=== PATIENT | female | born 2005 | race Two or more races ===

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

== ENCOUNTER 2023-05-31 14:50 | Emergency (ER) | payer OTHER, SELFPAY ==
[2023-05-31 15:12] VITALS: BP 121/80; PULSE 92; RESP 18; TEMP 36.4; O2SAT 100
--- NOTE | 2023-05-31 15:54 | ED.GENADULT ---
HPI - General Adult General Chief complaint: Urogenital-Female <Shannan Shell August, Last Filed: 06/08/23 11:57> Stated complaint: vomiting-UTI, chlamydia <Shannan Shell August, Last Filed: 06/08/23 11:57> Time Seen by Provider: 05/31/23 18:55 <Shannan Shell August, Last Filed: 06/08/23 11:57> History of Present Illness HPI narrative: Focused HPI: [address]54 Ida Buckner is a 17 y/o female who presents today with reports of being diagnosed with a UTI and chlamydia about 5 days ago and was put on Bactrim and Doxycycline and she states that she has felt nauseated since starting the medications and vomited yesterday and hasn't been able to keep them down for the past two days She also states that she has some left flank pain She states that she thinks the medications were giving her rashes to her arms and legs but it went away and is not there at this time. GENERAL: Well-appearing, well-nourished, and in no acute distress. HEAD: Normocephalic, atraumatic. CHEST: Clear to auscultation. ?No respiratory distress. HEART: Regular rate and rhythm.? NEURO: ?Alert and oriented x3. Patient screened in triage and initial orders placed.? ?Additional care and disposition to be based upon?diagnostic testing and treatment. <Shannan Shell August, Last Filed: 06/08/23 11:57> Related Data Home medications: Home Medications Medication Instructions Recorded Confirmed iron,carbonyl 30 mg-vitamin C 10 1 tablet PO DAILY 06/10/22 06/10/22 mg-FOS 25 mg chewable tablet (Chewable Iron) <Shannan Shell August, Last Filed: 06/08/23 11:57> Allergies/adverse reactions: Allergies Allergy/AdvReac Type Severity Reaction Status Date / Time shellfish derived Allergy Unknown unknown Verified 05/31/23 14:51 <Shannan Shell August, Last Filed: 06/08/23 11:57> Review of Systems Review of Systems: All systems reviewed & are unremarkable except as noted in HPI and below <Shannan Shell August, Last Filed: 06/08/23 11:57> PMFSH Past Medical History Medical History: Medical History Chiari I malformation Headache <Shannan Amador APRN - Last Filed: 06/08/23 11:57> Surgical History Surgical History: Surgical History No history of previous surgery <Shannan Amador APRN - Last Filed: 06/08/23 11:57> Family History Family History: Family History Other Family history non-contributory <Shannan Amador [employer] - Last Filed: 06/08/23 11:57> Social History Social History: Social History Social History: never smoker Smoking status: Never smoker Alcohol intake: never Substance use type: marijuana Other substance usage details: THC dab pen <Shannan Amador [employer] - Last Filed: 06/08/23 11:57> Exam Narrative: APPEARANCE: No apparent distress. Head: atraumatic. EYES: EOMI, NOSE: Atraumatic NECK: Trachea midline RESPIRATORY: No increased rate of breathing CARDIOVASCULAR: RRR, ABDOMINAL: Non-distended, soft nontender no suprapubic tenderness no CVA tenderness MUSCULOSKELETAl: No obvious deformities NEURO: Alert. Moving 4/4 extremities SKIN:: Warm, dry. Normal color PSYCHIATRIC: Normal affect <Cosmo Todd MD - Last Filed: 05/31/23 20:29> Course Vital Signs Vital signs: Vital Signs Temperature 36.4 C 05/31/23 15:12 Pulse Rate 92 05/31/23 15:12 Respiratory Rate 18 05/31/23 15:12 Blood Pressure 121/80 05/31/23 15:12 Pulse Oximetry 100 05/31/23 15:12 Oxygen Delivery Room Air 05/31/23 15:12 Temperature 36.4 C L 05/31/23 20:58 Pulse Rate 85 05/31/23 20:58 Respiratory Rate 16 05/31/23 20:58 Blood Pressure 117/81 05/31/23 20:58 Pulse Oximetry 100 05/31/23 20:58 Oxygen Delivery Room Air 05/31/23 15:12 <Radha
[2023-05-31 20:20] LABS: Appearance Urine Clear (Clear); Bacteria Urine None Seen /hpf; Bilirubin Urine Negative (Negative); Blood Urine Negative (Negative); Color Urine Yellow (Yellow); Glucose Urine UA Negative (Negative); Ketones Urine Negative (Negative); Leukocyte Esterase Ur 2+ LEU/UL (Negative); Nitrate Urine Negative (Negative); Non Pathogenic Casts 0-2; Protein Urine Negative (Negative); RBC Urine 0-2 /hpf (0-2); Specific Grav Ur 1.007 (1.001-1.035); Squamous Epithelial Cell Urine Occasional /hpf (Few); Urobilinogen Urine 0.2 mg/dL (<2.0); WBC Urine 21-50 /hpf; pH Urine 6.5 (5.0-9.0)
[2023-05-31 20:22] LABS: Add Urine Microscopic? YES
[2023-05-31 20:58] VITALS: BP 117/81; PULSE 85; RESP 16; TEMP 36.4; O2SAT 100
== END 2023-05-31 20:59 | disposition home or self-care (01) ==
LOC: ANHED 20:39
PROVIDERS: Nurse Practitioner Family; Emergency Provider Emergency Medicine
DX: N39.0 Urinary tract infection, site not specified (principal)
CPT/HCPCS: 81001; 81025; 87086; 99283